=== PATIENT | female | born 1970 | race Caucasian/White ===

== ENCOUNTER 2019-06-06 09:02 | Emergency (ER) | payer OTHER ==
[2019-06-06 09:24] VITALS: BP 157/98
[2019-06-06] MEDS ORDERED: Ibuprofen TAB* 600 MG PO ONE (09:36)
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
== END 2019-06-06 10:30 | disposition home or self-care (01) ==
LOC: UCEAST 09:02
DX: S40.012A Contusion of left shoulder, initial encounter (principal); E11.9 Type 2 diabetes mellitus without complications; I10 Essential (primary) hypertension; Z79.899 Other long term (current) drug therapy; Z79.84 Long term (current) use of oral hypoglycemic drugs; F17.200 Nicotine dependence, unspecified, uncomplicated; W50.0XXA Accidental hit or strike by another person, initial encounter; Y92.9 Unspecified place or not applicable
CPT/HCPCS: 99211; A9270-GY; G0463